=== PATIENT | female | born 1965 | race Caucasian/White ===

== ENCOUNTER 2021-05-19 00:32 | Inpatient (IN) | payer OTHER, SELFPAY ==
[2021-05-19] VITALS (18 sets, daily range): BP systolic 114–138; BP diastolic 81–92; PULSE 81–106; RESP 14–20; TEMP 36.6–37.5; O2SAT 96–99; BMI 25.2
--- NOTE | 2021-05-19 01:54 | P.HP_ITS ---
History of Present Illness History of Present Illness Date Patient Seen: 05/19/21 Time Patient Seen: 01:18 Chief complaint: orb Narrative: Carly Carney is a 55 year old female with a reported medical history chronic alcohol abuse and hypothyroidism who was seen at [facility] ED, patient was brought in by her family complaining of uncontrollable shakes a inability to stand after stopping drinking on , it was reported that her family found her down at home on the floor unconscious after hitting her head on the counter for an undetermined amount of time. It was also reported by EMT's that they patient had a seizure in [facility] ED was given IV Ativan, Thiamine, the pt also pulled out her IV in the ambulance. Apparently April of 2020 patient was seen at [facility] ED for status epilepticus secondary to alcohol withdrawal. Report/request for transfer was called to Dr. Richardson who accepted transfer to our facility. No physician notes provided, only imaging and few laboratory results. Several attempts have been made to obtain physician notes and laboratory results to no avail. The patient is a poor historian and confused as she has had at least 6 mg of Ativan per EMS. She is alert, though she fell asleep during questioning. She states that she has been drinking at least 24-48 oz of vodka daily for approximately 35 years she has attempted sobriety several times, and rehab approximately 2-3 years ago. She reports no history of seizures with withdrawals, and was unable to recall being found down or having a seizure earlier. Patient states her last drink was on the 16 of May. Patient states that she smoked for 20 years and quit at the age of 37, she takes no recreational substances, she lives alone in [facility] [place] she is up here visiting family for the holidays . Based on the records from [facility] temp 98.1?, BP 153/100, HR 112, R 22, O2 saturation 98% on room air. Upon admit patient had is slightly febrile temp 99.5?, BP 136/86, HR 106, RR 18, O2 saturation 99% on room air. Patient is alert, though appears confused and falls asleep during intake interview, poor historian, but in no distress at this time. [facility] provided no cbc results, anion gap 15, creatinine 0.40, AST 168, ALT 58, bili 1.8, magnesium of 1.3 and was given 50 mg of magnesium, PT 14.8, INR 1.1, ETOH was negative, troponin WNL, tox screen negative, urinalysis showed positive bilirubin, uro bili of 4.0, ketones large, trace leukocytes, and protein + 30. Patient's abdomen pelvis CT demonstrated no acute abnormalities, diffuse hepatic steatosis, mild nodularity of the liver surface which is suspicious for early cirrhosis, and small hiatal hernia. Patient's head CT demonstrated no acute intracranial processes. Patient has had not been tested for COVID prior to transfer. Patient's EKG is documented as sinus tachycardia at a rate of 109, low-voltage extremity and precordial leads, consistent with EKG from 05/21/2020. Patient admitted for observation alcohol withdrawal syndrome with complication, seizure, head trauma secondary to syncope, hypomagnesia in the setting of history of status epilepticus related to alcohol withdrawal. Patient History Medical History Acquired hypothyroidism Alcohol abuse Alcohol withdrawal syndrome with complication History of status epilepticus History of tobacco abuse Surgical History (Updated 05/19/21 @ 02:34 by YARA Romero-JOEL) No history of previous surgery Family & Social History Family History (Updated 05/19/21 @ 02:35 by CLAUDETTE Romero) Mother Cancer Father Cancer Social History: Patient lives alone in [facility] [place], works in Service Seeking and School Admissions. Tobacco & Substance use: Alcohol 24-48 oz of vodka daily times 35 years Tobacco abuse 20 years quit at age 37 Recreational substances never Review of Systems Review of Systems Narrative: All 12 point systems reviewed with the patient and are negative except otherwise documented. Please note that patient is confused and disorientated between withdrawals and Ativan dosing and was unable to accurately participate in HPI, ROS, or family history. Exam Vital Signs (past 8 hours): - 05/19/21 01:16 Temperature 99.5 F Pulse Rate 106 H Respiratory Rate 18 Blood Pressure 136/86 Pulse Oximetry 99 Oxygen Flow Rate 0 Narrative Exam Narrative: General: Patient is a well-developed, moderately-nourished female in no distress at this time. HEENT: Normocephalic, atraumatic, extraocular muscles intact, oral pharynx is clear and mucous membranes are dry, lips arecracking, and mild bleeding. Neck is supple and symmetric, trachea is midline, no adenopathy, no thyroid enlargement, nontender, no masses palpated. Negative for JVD Chest: Normal AP diameter and contour without kyphoscoliosis, no nasal flaring, retractions, or tachypneic labored Lungs: Auscultation of all lung gauthier are clear without adventitious sounds, wheezes, rhonchi, or rales. Cardio: regular tachycardiac raet without murmur, rubs, or gallops, no carotid bruit, no cardiac pulsations present. Abdomen: Soft nontender, negative for organomegaly, or masses. Bowel sounds are hypoactive present in all 4 quadrants without guarding or rebound, no CVA tenderness. Musculoskeletal: Muscle strength and tone are equal within normal limits, no deformity, crepitus, effusions, cyanosis, clubbing or edema present. Full range of motion intact radial and pedal pulses are normal. Skin: Warm dry and intact without rashes, ulcerations or petechiae. Neuro: Alert though falls asleep in the middle of questioning, strength is +5/5 in all extremities, sensation to touch intact, bilateral horizontal rapid equal nystagmus. Psych: Patient has a moderate-kept appearance, appears older than stated age, inappropriate affect, confused, but pleasant. Assessment & Plan Assessment & Plan narrative: Carly Carney is a 55 year old female with a reported medical history chronic alcohol abuse and hypothyroidism who was seen at [facility] ED was transferred to [facility]. Patient had been brought in by her family complaining of uncontrollable shakes a inability to stand after stopping drinking on , her family found her down at home on the floor unconscious after hitting her head on the counter for an undetermined amount of time. The patient had a seizure in [facility] ED, and had been admitted in apr 2020 for status epilepticus secondary to alcohol withdrawal. Patient admitted for observation alcohol withdrawal syndrome with complication, seizure, head trauma secondary to syncope, hypomagnesia in the setting of history of status epilepticus related to alcohol withdrawal. 1. Alcohol withdrawal syndrome with complication, seizure, head trauma secondary to syncope, in the setting of chronic alcohol abuse, acute on chronic, with a history of status epilepticus secondary to alcohol withdrawal, with secondary hypomagnesia, acute, present on admission -stable -monitor patient for complications of fluid overload variceal hemorrhage, ascites, spontaneous bacterial peritonitis, hepatocellular carcinoma, hepatic renal syndrome, or hepatopulmonary syndrome, septic shock, closed head injury, intracranial hemorrhage. -patient given 6 mg of Ativan, thiamine, and magnesium in [facility] ED -patient admitted under [facility] protocol, seizure precautions, Fall precautions, -Ativan per protocol tonight-Tomorrow stop ativan and change to phenobarbital 60 mg BID tomrrow-monitor for over sedation. Titrate dose up or down passed on patient symptoms & sedation. -Do not give Phenobarbital & Ativan together. -Thiamine & folate -NS@100cc/hr -Tele -pt continues to be tachycardic-stable in no distress. -Morning Labs: cbc, cmp, ammonia, BNP, A1c, monitor electrolytes Mag , phos -patient counseled on stopping drinking and seeking follow-up outpatient mental health and rehabilitative services. -MR brain ordered for morning- due to syncope, head trauma, and seizure. 2. Acquired hypothyroidism, chronic, present on admission -continue patient's levothyroxine Code status: Full Surrogate decision maker: Father Vasquez NEIL PCR: Negative DVT/VTE prophylaxis: Lovenox 40 & SCD's Disposition: A patient admitted for observation monitor for ongoing seizure activity, rehydration, correct electrolyte imbalace, rule out closed head injury, and manage alcohol withdrawal symptoms. Expected length of stay less than 2 midnights. I have utilized all available immediate resources to obtain, update, or review the patient's current medications. I confirmed that the patient's advanced care plan is present, Code status is documented and/or surrogate decision maker is listed in the patient's medical record. Time Spent With Patient Critical Care time: I spent a total of [] minutes of critical care time on this patient's care today; this time is exclusive of procedural time. Scores [facility] [place] coma scale eye opening: Spontaneous [place] coma scale verbal response: Confused [place] coma scale motor response: Localising [place] coma scale total score: 13
[2021-05-19] MEDS: SODIUM CHLORIDE 0.9% 1,000 ML 100 ML IV ×2 (02:11→13:21)
[2021-05-19] MEDS: ACETAMINOPHEN 325 MG TABLET 650 MG PO (02:16)
[2021-05-19] MEDS: LORazepam 2 MG/ML INJ IV ×5 (02:17→16:10)
[2021-05-19] MEDS: ONDANSETRON 4 MG/2 ML INJ IV (02:17)
[2021-05-19 02:24] LABS: COVID19 - ADMIT (NP swab/PCR) Negative (Negative)
[2021-05-19 03:59] LABS: Bilirubin Urine UA 1+ (NEGATIVE); Glucose Urine UA TRACE g/dL (Negative); Ketones Urine UA 2+ (NEGATIVE); Leukocyte Esterase Urine UA NEGATIVE (NEGATIVE); Nitrite Urine UA NEGATIVE (Negative); Occult Blood Urine UA NEGATIVE (Negative); Protein Urine UA 1+ (Negative)
[2021-05-19 04:01] LABS: Color Urine UA Dark Yellow
[2021-05-19 04:05] LABS: Appearance Urine UA Slightly Cloudy
[2021-05-19 04:06] LABS: Ictotest Urine Positive (Negative); RBC Urine None Seen (0-5/HPF); Squamous Epithelial Cell Urine 0-1 /HPF (0-5/HPF); WBC Urine None Seen (0-5/HPF)
[2021-05-19 04:07] LABS: Amorphous Sediment Urine 3+; Bacteria Urine Occasional (0-1); Culture Indicated Urine Cult Not Indicated; Triple Phosphate Crystal Urine Few
[2021-05-19 05:15] LABS: Add Manual Diff / Slide Review NO; Basophils Absolute Auto 0 /uL (0-100); Basophils Percent Auto 0.9 % (0-2); Eosinophils Absolute Auto 200 /uL (0-450); Eosinophils Percent Auto 3.3 % (2-4); Hematocrit 33.1 % (36-46); Lymphocytes Absolute Auto 900 /uL (1100-4500); Lymphocytes Percent Auto 18.2 % (25-40); Mean Corpuscular HGB Conc 33.3 % (30-36); Mean Corpuscular Hemoglobin 33.1 PG (26-34); Mean Corpuscular Volume 99.3 fL (80-100); Monocytes Absolute Auto 600 /uL (0-900); Monocytes Percent Auto 11.6 % (3-14); Neutrophils Absolute Auto 3300 /uL (1500-7000); Platelet Count 70 X10^3/uL (150-400); Red Blood Cell Count 3.33 X10^6/uL (4.0-5.2); Red Cell Distribution Width 13.5 % (11.6-14.8)
[2021-05-19 05:22] LABS: Ammonia (NH3) 27 umol/L (9-30)
[2021-05-19 05:24] LABS: PTT Partial Thromboplastin Tim 32 SECONDS (26.4-36.2)
[2021-05-19 05:27] LABS: Alanine Aminotransferase 57 IU/L (<35); Albumin 4.3 g/dL (3.5-5.0); Albumin Globulin Ratio 1.3 (1.0-2.8); Alkaline Phosphatase 84 U/L (38-126); Aspartate Aminotransferase 173 IU/L (14-36); BUN Creatinine Ratio 28.9 (6-22); Bilirubin Total 2.1 mg/dL (0.2-1.3); Blood Urea Nitrogen 13 mg/dL (7-17); Calcium 9.5 mg/dL (8.4-10.2); Carbon Dioxide 24 mmol/L (22-32); Chloride 102 mmol/L (98-107); Estimated Glomerular Filt Rate > 60.0 mL/min (>60); Globulin 3.4 g/dL (1.7-4.1); Glucose 102 mg/dL (70-100); HEMOLYSIS < 15 (0-50); Magnesium 1.9 mg/dL (1.6-2.3); Phosphorous 3.6 mg/dL (2.5-4.5); Potassium 3.4 mmol/L (3.4-5.1); Sodium 137 mmol/L (137-145); Total Protein 7.7 g/dL (6.3-8.2)
[2021-05-19 05:30] LABS: Hemoglobin A1C% w Est Avg Glu 5.1 % (4.0-6.0)
[2021-05-19 05:32] LABS: INR 1.3 (0.9-1.3); Prothrombin Time 15.2 SECONDS (10.1-12.7)
[2021-05-19 05:34] LABS: NT-proBNP (BNP-Adult 18+) 419 pg/mL (<125)
[2021-05-19 05:56] LABS: TSH w/ Reflex to FT4 6.33 uIU/mL (0.47-4.68)
[2021-05-19 07:26] LABS: Creatine Kinase 419 U/L (30-135)
--- NOTE | 2021-05-19 07:31 | PC.NURSE ---
arrived to floor w/o notice from receiving hospital letting us know she was on her way. no covid swab info, no MD notes, no VS or report from nurse sending patient. call to [facility] to get report. Nurse who had patient had left, but i spoke w/ a nurse who read the notes from [facility]. patient had a similar event last , when she traveled to her parents for the holiday, they located her alcohol, which they disposed of, then patient went into w/d. hx of seizures. no meds taken for this. patient unable to give hx of any meds. patient had pulled her PIV on way to . new iv site obtained to left arm. patient tremulous, anxious, but able to answer yes/no questions. Ciwa- 8 then 5 after lorazepam IV given. tele: ST- 130 w/ exertion. OOB to [facility] w/ 1-2 pa, patient unable ot follow directions. urine was very foul-smelling, sample sent to lab. NS at 100/hour. MRI head/neck ordered since patient fell yesterday. has a large purple bruise to left back, w/ a small abraised area. dressingapplied. bed alarm is on, call light w/in reach. she does not use call light so this nurse sat outside her room to monitor for safety.
[2021-05-19] MEDS: PANTOPRAZOLE DR 20 MG TABLET PO (08:11)
[2021-05-19] MEDS: FOLIC ACID 1 MG TABLET PO (08:12)
[2021-05-19] MEDS: MULTIVITAMIN 1 TABLET 1 TAB PO (08:12)
[2021-05-19] MEDS: ENOXAPARIN 40 MG/0.4 ML SYRINGE SUBCUT (08:12)
[2021-05-19] MEDS: THIAMINE 100 MG TABLET PO (08:14)
[2021-05-19] MEDS: chlordiazePOXIDE 25 MG CAPSULE PO ×2 (08:14→20:39)
--- NOTE | 2021-05-19 08:19 | PC.NURSE ---
Pt A&Ox3, MRI questionaire completed at bedside however pt refusing MRI this a.m. even with anxiolytic medication. MD notified and MRI cancelled.
[2021-05-19] MEDS: POTASSIUM CHLORIDE 20 MEQ TAB 40 MEQ PO (10:43)
[2021-05-19] MEDS: THIAMINE 500 MG in SODIUM CHLORIDE 0.9% 100 ML 420 ML IV ×3 (13:20→20:39)
--- NOTE | 2021-05-19 13:50 | PT-IP ANOTE ---
Received PT consult and reviewed the chart. Discussed pt with RN who states pt is not stable for PT assessment at this time. Will plan to follow up on 05/20/21.
--- NOTE | 2021-05-19 13:51 | OT.IPNOTE ---
Pt not appropriate for OT eval today and to check on the pt tomorrow.
--- NOTE | 2021-05-19 14:36 | PC.NURSE ---
Addendum entered by Celeste Perez R.N. 05/20/21 18:16: correction nystagmus not stigmatism Original Note: Pt is A&Ox1-2 this a.m. She is off by 1-2 days and didn't remember the name of the city or hospital and continues to be very forgetful. She denies n/v, headache, light sensitivity, agitation, hallucinations or anxiety however her tremors are moderate to severe. She has a difficult time standing and getting to BSC (x2 person for assistance) and her HR 130's-150 with trying to stand or get out of bed. She needs frequent reminding to call for assistance and appears to be a very high fall risk. Noted B eyes with stigmatism and many scattered bruises to her extremities with various stages of healing and one large bruise on her back. She attempts to void in BSC x2 this a.m. without success and noted no documentation of output since her arrival. Bladder scan revealed only 139 ml. Notified MD and received order to straight cath x1. 175ml of bright orange urine obtained. Pt then with x1 small incontinent void. PVR <20 ccc. Pt able to eat 10-25% of meals, she denies pain. Continuous monitoring. CM at bedside this afternoon assessing patient. She will reassess tomorrow. Pt is unclear about who she is ok with nurse and CM discussing care with. Initially states it is ok to talk with siblings and mother and then changing. Will reassess. Pt talking on the phone this afternoon to admitting holding both pieces of her room phone to her ear.
--- NOTE | 2021-05-19 14:57 | CM.DANOTE ---
DCP/Assessment: Reviewed chart. Patient is a 55yr old female admitted to [facility] from [facility] due to bed availability. PCP is unknown. Primary payor is 1)[place] [employer] [place]. Attempted to meet with patient today to explain VOLTAGE INSPECTOR role. Patient currently on CIWA protocol with active detox. Patient with tremors at time of visit. Patient reports that she initially was at [facility], notes report patient transferred due to bed availability. Patient's current living situation unable to determine. Patient's Mother listed on whiteboard as contact but patient requesting that none of her family be called. VOLTAGE INSPECTOR notified patient that VOLTAGE INSPECTOR would re-evaluate patient once more medically stable. Family has called nursing staff requesting assistance with inpatient rehabilitation for patient? Notified RN that patient currently refusing for us to contact family. Again, will follow up in AM. P: Pending [facility] Discharge Planning/Care Management CM Discharge Assessment Start: 05/19/21 14:48 Freq: Status: Active Protocol: Document 05/19/21 14:48 [facility] (Rec: 05/19/21 14:56 [facility] [id number]) Discharge Planning Assessment Assigned Rural Health Consultant [place] Contact Information Bria Carney (Mother) ph# Advance Directives? No Advance Directives on File No History Provided By Patient,Medical Record Prior Living Arrangements House Household Members none Type of transporation used prior to Drives own vehicle admit Independent with ADL's No: Currently with ETOH detox Is patient alert and oriented? Questionable during detox. At baseline Alert and Oriented x3 . Needs Assistance With Bathing,Grooming,Meal Prep, Toileting,Managing Medications Caregiver for Another No Comment Unknown, patient visiting family from [place]. Comment Unknown. PT/OT evaluations pending. Patient/Family Preference Drug/Alcohol Rehab Comment Currently unclear on patient's current treatment status. Comment D/C needs pending. Transportation Arrangement Family? Referrals Initiated Other Additional Comment ETOH resources Whiteboard Updated in Patient Room with Yes name and ext. # of Rural Health Consultant Review Status In Process Next Review Type Continued Stay Review
[2021-05-20] VITALS (14 sets, daily range): BP systolic 110–132; BP diastolic 78–92; PULSE 85–109; RESP 16–18; TEMP 36.6–36.9; O2SAT 94–100
[2021-05-20] MEDS: SODIUM CHLORIDE 0.9% 1,000 ML 100 ML IV ×3 (00:43→20:37)
[2021-05-20] MEDS: LORazepam 2 MG/ML INJ IV (00:43)
--- NOTE | 2021-05-20 02:41 | PC.NURSE ---
patient is more alert & oriented at the beginning of this shift. calling out for help instead of trying to get OOB unattended. she is able to articulate her needs better today. and appears more collected today. ativan given x 1 so far this shift for CIWA 7, mostly tremors and nausea. this was effective. able to follow commands easier, tolerated OOB to BSC w/ 1-2 minimum assist. continues w/ IVF and frequent safety and room checks. Bed alarm is on, call light w/in reach.
[2021-05-20 05:35] LABS: Add Manual Diff / Slide Review NO; Basophils Absolute Auto 100 /uL (0-100); Basophils Percent Auto 1.2 % (0-2); Eosinophils Absolute Auto 300 /uL (0-450); Hematocrit 31.3 % (36-46); Hemoglobin 10.3 g/dL (12.0-16.0); Lymphocytes Absolute Auto 1000 /uL (1100-4500); Lymphocytes Percent Auto 22.9 % (25-40); Mean Corpuscular HGB Conc 32.8 % (30-36); Mean Corpuscular Volume 100.6 fL (80-100); Monocytes Absolute Auto 500 /uL (0-900); Monocytes Percent Auto 12.2 % (3-14); Neutrophils Absolute Auto 2400 /uL (1500-7000); Neutrophils Percent Auto 56.7 % (50-75); Platelet Count 67 X10^3/uL (150-400); Red Blood Cell Count 3.11 X10^6/uL (4.0-5.2); Red Cell Distribution Width 13.3 % (11.6-14.8); White Blood Cell Count 4.2 X10^3/uL (4.5-11.0)
[2021-05-20 05:40] LABS: Alanine Aminotransferase 45 IU/L (<35); Albumin 3.8 g/dL (3.5-5.0); Albumin Globulin Ratio 1.2 (1.0-2.8); Alkaline Phosphatase 69 U/L (38-126); Aspartate Aminotransferase 119 IU/L (14-36); BUN Creatinine Ratio 16.3 (6-22); Bilirubin Total 1.7 mg/dL (0.2-1.3); Blood Urea Nitrogen 8 mg/dL (7-17); Calcium 9.1 mg/dL (8.4-10.2); Carbon Dioxide 24 mmol/L (22-32); Chloride 106 mmol/L (98-107); Estimated Glomerular Filt Rate > 60.0 mL/min (>60); Globulin 3.1 g/dL (1.7-4.1); Glucose 82 mg/dL (70-100); HEMOLYSIS < 15 (0-50); Magnesium 1.5 mg/dL (1.6-2.3); Potassium 3.6 mmol/L (3.4-5.1); Sodium 137 mmol/L (137-145); Total Protein 6.9 g/dL (6.3-8.2)
[2021-05-20] MEDS: PANTOPRAZOLE DR 20 MG TABLET PO (06:38)
[2021-05-20] MEDS: LEVOTHYROXINE 50 MCG TABLET PO (06:38)
[2021-05-20] MEDS: FOLIC ACID 1 MG TABLET PO (09:02)
[2021-05-20] MEDS: chlordiazePOXIDE 25 MG CAPSULE PO ×3 (09:02→20:30)
[2021-05-20] MEDS: MULTIVITAMIN 1 TABLET 1 TAB PO (09:02)
[2021-05-20] MEDS: ENOXAPARIN 40 MG/0.4 ML SYRINGE SUBCUT (09:02)
[2021-05-20] MEDS: THIAMINE 500 MG in SODIUM CHLORIDE 0.9% 100 ML 420 ML IV ×3 (09:06→20:27)
[2021-05-20] MEDS: MAGNESIUM SULFATE 4 GM/100 ML PIGGYBACK IV (09:35)
--- NOTE | 2021-05-20 10:10 | OT.IP.EVAL ---
Current Diagnoses Alcohol abuse, uncomplicated (05/19/21) Alcohol dependence with withdrawal, unspecified (05/19/21) Past Medical History (Last Updated 05/19/21 @ 02:34 [facility] Acquired hypothyroidism Alcohol abuse Alcohol withdrawal syndrome with complication History of status epilepticus History of tobacco abuse No history of previous surgery Surgical History (Last Updated 05/19/21 @ 02:[facility] No history of previous surgery Occupational Therapy Inpatient Evaluation/Re-Eval M1 PT/OT-IP Prior Functional Status Start: 05/19/21 13:47 Freq: NEEDED Status: Active Protocol: Document 05/20/21 12:09 [facility] (Rec: 05/20/21 12: [facility] [id number]) Medical Review Prior Functional Status Communication Independent Mobility and Gait Per pt did not use a device for ambulation. Activities of Daily Living and IADL's Completely independent for all ADl ,IADl, and driving. Social History Household Members none Living Arrangements House, this information is for her parent's house Number of Floors (Floors) 3 or More Floors Number of Stairs To Enter/Railing? Pt not able to recall how many steps to get in. Initially pt told OT she had 25 steps to the lower level and then told the PT steps to get upstairs. Home Environment Standard Height Toilet,Tub/ Shower Home Equipment Hand Held Shower M2 OT-IP Current Condition Start: 05/20/21 12:08 Freq: Status: Active Protocol: Document 05/20/21 12:09 [facility] (Rec: 05/20/21 12:28 [facility] [id number]) Occupational Therapy Current Condition Current Condition Evaluation Date 05/20/21 Treatment Diagnosis ETOH withdrawl with previous withdrawal seizure, decreased mobility Diagnosis Onset Date 05/19/21 M3 OT- IP Subjective and Pain Start: 05/20/21 12:08 Freq: Status: Active Protocol: Document 05/20/21 12:09 [facility] (Rec: 05/20/21 12:28 [facility] [id number]) OT- Subjective Occupational Therapy Visit Type Type Initial Evaluation Visit Start Time 09:40 Visit Stop Time 10:10 Total Visit Minutes 30 Occupational Therapy Visit Comments Patient Comments Pt agree to get up. Patient/Caregiver Goals To go to her parents home. OT Pain Assessment Pain When Pain Assessed At Rest Pain Present Pain Present Denied Pain M4 OT- IP ADL's Start: 05/20/21 12:08 Freq: Status: Active Protocol: Document 05/20/21 12:09 [facility] (Rec: 05/20/21 12:28 [facility] [id number]) OT [id number] Comments OT Self-Feeding Comments Not at meal time. OT ADL-Grooming General Evaluation Grooming Ability Standby Assistance OT ADL-Oral Care General Eval Oral Care Ability Minimal Assistance Comments Oral Care Comments Due to hand tremors, needing assist to help put the tooth paste on the toothbrush. OT ADL-Dressing General Eval Lower Body Dressing Ability Standby Assistance Comments OT Dressing Comments Able to kaye/doff her socks while seated on the edge of the bed with increased time. OT ADL-Toileting Comments OT Toileting Comments Pt not having to go. OT ADL-Bathing Comments OT Bathing Comments NOt performed. M5 OT- IP IADL's Start: 05/20/21 12:08 Freq: Status: Active Protocol: Document 05/20/21 12:09 [facility] (Rec: 05/20/21 12:28 [facility] [id number]) OT-Instrumental Activities of Daily Living Home Safety Awareness Home Safety Comments Pt a bit confused, having trouble to get the words out, and will benefit from / assist for all her needs. M6 OT- IP Functional Cognition Start: 05/20/21 12:08 Freq: Status: Active Protocol: Document 05/20/21 12:09 [facility] (Rec: 05/20/21 12:28 [facility] [id number]) Cognitive Factors Limiting Selfcare Function Cognitive Ability Level of Alertness Alert Patient Orientation Name Attention Span Ability Capable of Focused Attention, Capable of Sustained Attention Ability to Follow Commands Able to Follow One Step Commands with Increased Time, Able to Follow One Step Commands with Repetition Memory Description Working Impaired Cognitive Comments Cognitive Assessment Comments Pt having trouble getting his words out as not able to identify body parts of elbow and forearm. Pt needing simple concrete cues to follow. pt needing increased time to follow commands as well. Pt needing cues to FWW safety to keep the FWW in front of her. OT- Vision and Hearing OT- Hearing Assessment OT- Hearing Assessment WFL OT- Vision Assessment Visual Acuity Glasses For Reading Vision Assessment Comments pt states her reading glasses are not here in the hospital Note bilateral nystagmus for her eyes. M7 OT- IP Mobility and Balance Start: 05/20/21 12:08 Freq: Status: Active Protocol: Document 05/20/21 12:09 [facility] (Rec: 05/20/21 12: [facility] [id number]) OT- Bed Mobility Assessment Rolling Type of Rolling Roll to Left Level of Assistance Standby Assistance Supine to Sit Supine to Sit Assist Standby Assistance Sit to Supine Sit to Supine Assist Standby Assistance OT-Transfer Assessment Sit to and From Stand Sit to and from Stand Contact Guard Assistance Transfers Transfer Ability Minimal Assistance Technique Transfer Destination Bed Transfer Technique Stand Step Pivot Devices Transfer Assistive Devices Gait Belt,Front Wheeled Walker Comments Mobility Comments JI to stand to FWW and assist to help guide the FWW and for pt's balance when up on her feet. OT- Balance Assessment Sitting Balance and Reactions Static Sitting Balance Ability Good Dynamic Sitting Balance Ability Good Standing Balance and Reactions Static Standing Balance Ability Fair Dynamic Standing Balance Ability Poor M8 OT- IP Objective Assessments Start: 05/20/21 12:08 Freq: Status: Active Protocol: Document 05/20/21 12:09 [facility] (Rec: 05/20/21 12:28 [facility] [id number]) OT Gross Range of Motion Upper Extremity Range of Motion Assessment Within Functional Limits OT Strength Upper Extremity Strength Assessment Within Functional Limits OT- Coordination Assessment Comments Coordination Comments Increased time for fniger to nose left > right finger. Pt not able to do diadochokinesis, therefore coordination from right to left impaired at this time. OT-Muscle Tone Assessment Comments Muscle Tone Comments Pt has tremors in her hands. OT Sensation Assessment Comments Summary Comments Intact for light touch but unable to identify and states the words for elbow and forearm. M9 OT- IP Assessment and Plan Start: 05/20/21 12:08 Freq: Status: Active Protocol: Document 05/20/21 12:09 [facility] (Rec: 05/20/21 12:28 [facility] [id number]) OT Summary Assessment and Plan Potential Rehabilitation Potential Good Analytic Complexity at Evaluation Moderate Summary OT Impairments Balance,Coordination, Functional Cognition, Functional Mobility,Grooming, Dressing,Toileting,Bathing, Toilet Transfers,Shower Transfers,Activity Tolerance Progress Towards Goals Slow Progress due to Medical Issues,Slow Progress due to Cognition Assessment Summary Pt MOD complexity and main barriers are steps, decreased balance and functional cognition at this time and would benefit from 24/7 assist at this time as pt has ETOH withdrawal. Pt states looking to go home to her parents when medically stable. However if pt's parents are unable to care for pt , pt may need short rehab stay. Goals Self-Feeding Goal Independent Grooming Goal Independent Dressing Goal Independent Toileting Goal Independent Bathing Goal Independent Toilet Transfer Goal Independent Shower Transfer Goal Independent Days to Meet Goals 10 Frequency of Treatment Frequency Of Treatment Once a Day Treatment Plan OT Treatment Plan ADL Training,Functional Cognition Training,Functional Mobility,Patient/Family Education,Discharge Planning Other Treatment Recommendations and Next SLUMS, shower Treatment Focus Discharge Recommendations OT Discharge Recommendations Home with 24/7 Assist Available,Home vs SNF Home Equipment Needs shower chair, FWW Transportation Needs at Discharge Private Vehicle,Wheelchair/ Cabulance
--- NOTE | 2021-05-20 11:58 | P.PN_ITS ---
Subjective Subjective Date Patient Seen: 05/20/21 Time Patient Seen: 08:00 Interval history: She feels improved. Less withdrawal. She continues to be quite unsteady with activity. Exam Vital Signs (past 8 hours): - 05/20/21 04:00 05/20/21 07:00 05/20/21 08:52 Temperature 97.8 F 97.8 F Pulse Rate 85 100 H Respiratory Rate 16 18 Blood Pressure 132/78 130/92 H Pulse Oximetry 96 98 98 05/20/21 11:00 Temperature Pulse Rate Respiratory Rate Blood Pressure Pulse Oximetry 98 Oxygen Delivery Method Room Air Oxygen Flow Rate 0 Narrative Exam Narrative: General:?no acute distress Lungs:?clear bilaterally Cardio:? tacycardic, no murmurs Abdomen:? soft, nontender, nondistended Skin:? Warm dry without rashes Neuro:?bilateral horizontal nystagmus Objective Labs Result Diagrams: 05/20/21 04:45 05/20/21 04:45 Labs: Laboratory Results - last 24 hr 05/20/21 05/20/21 04:45 04:45 WBC 4.2 L RBC 3.11 L Hgb 10.3 L Hct 31.3 L MCV 100.6 H MCH 33.0 MCHC 32.8 RDW 13.3 Plt Count 67 L Neut % (Auto) 56.7 Lymph % (Auto) 22.9 L [place] % (Auto) 12.2 Eos % (Auto) 7.0 H Baso % (Auto) 1.2 Neut # (Auto) 2400 Lymph # (Auto) 1000 L [place] # (Auto) 500 Eos # (Auto) 300 Baso # (Auto) 100 Sodium 137 Potassium 3.6 Chloride 106 Carbon Dioxide 24 BUN 8 Creatinine 0.49 L Estimated GFR > 60.0 BUN/Creatinine Ratio 16.3 Glucose 82 Calcium 9.1 Magnesium 1.5 L Total Bilirubin 1.7 H AST 119 H ALT 45 H Alkaline Phosphatase 69 Total Protein 6.9 Albumin 3.8 Globulin 3.1 Albumin/Globulin Ratio 1.2 PFSH Medical History Acquired hypothyroidism Alcohol abuse Alcohol withdrawal syndrome with complication History of status epilepticus History of tobacco abuse Surgical History (Updated 05/19/21 @ 02:34 by CLAUDETTE Romero) No history of previous surgery Family History (Updated 05/19/21 @ 02:35 by Marquita Brown, CLAIM REVIEW MEDICAL DIRECTOR-BC) Mother Cancer Father Cancer Social History household members: none Smoking Status: Never smoker alcohol intake: current Assessment & Plan Assessment & Plan narrative: 55W with PMH EtOH dependence/abuse with previous withdrawal seizure brought into ED after being found down and in alochol withdrawal. 1. Alcohol withdrawal with previous withdrawal seizure, probable Wernicke's enceophalopathy -she has been getting ativan per CIWA protocol, added librium for withdrawal -she has significant ataxia, noted nystagmus, and encephalopathy consistent with Wernicke's encephalopathy ---continue IV thiamine 500mg TID for 2 days, then 250mg daily, for wernicke's -continue folate, multivitamin -patient counseled on stopping drinking and seeking follow-up outpatient mental health and rehabilitative services. -MR brain ordered again, refused yesterday -scouring pads supervisor consulted 2. Acquired hypothyroidism, chronic, present on admission -continue patient's levothyroxine 3. Probable alcoholic cirrhosis with pancytopenia -pancytopenia noted on labs with wbc 4.2, hgb 10.3, plts 67 -has elevated liver function tests but now improving -abdominal imaging shows concern for nodular/cirrhotic liver 4. Hypomagnesemia -continue magnesium repletion Time Spent With Patient Critical Care time: I spent a total of [] minutes of critical care time on this patient's care today; this time is exclusive of procedural time. Quality VTE Deep Vein Thrombosis/Pulmonary Embolism Present on Admission: No
--- NOTE | 2021-05-20 12:00 | DI.MRI.S_ITS ---
PROCEDURE: MR HEAD/BRAIN WO/W CON INDICATIONS: unsteady, nystagmus TECHNIQUE: Noncontrast axial T1 spin echo, axial T2 fast spin echo, sagittal and axial FLAIR, coronal T2 fast spin echo, axial gradient echo, axial diffusion and ADC through the brain. After the administration of contrast, axial and coronal 3D VIBE or T1 spin echo with fat saturation through the brain. COMPARISON: [facility], CT, CT HEAD WITHOUT CONTRAST, 05/21/2020, 20:20. [facility], CT, CT HEAD WITHOUT CONTRAST, 05/18/2021, 14:35. FINDINGS: Image quality: This examination is limited by involuntary motion artifact. CSF Spaces: Basal cisterns are patent. No extra-axial fluid collections. Ventricles are normal in size and shape. Brain: No midline shift. No intracranial bleeds or masses. No abnormal intracranial enhancement. The brainstem appears normal. Diffusion-weighted images demonstrate no acute ischemic insults. No chronic ischemic insults. Normal intravascular flow voids are present. Skull and face: Calvarial marrow is normal in signal. Orbits appear normal. Sinuses: [id number] mucosal thickening is seen within the inferior maxillary sinuses. Sinuses and mastoids otherwise appear clear. IMPRESSION: No findings of acute or subacute infarction can be seen. No masses or abnormal enhancement can be seen. Dictated by: Francisco Bennett M.D. on 05/20/2021 at 12:40 Approved by: Francisco Bennett M.D. on 05/20/2021 at 12:42
--- NOTE | 2021-05-20 12:43 | PT.IIE ---
Current Diagnoses Alcohol abuse, uncomplicated (05/19/21) Alcohol dependence with withdrawal, unspecified (05/19/21) Medical History Acquired hypothyroidism Alcohol abuse Alcohol withdrawal syndrome with complication History of status epilepticus History of tobacco abuse Physical Therapy Inpatient Evaluation/Re-Eval M1 PT/OT-IP Prior Functional Status Start: 05/19/21 13:47 Freq: NEEDED Status: Active Protocol: Document 05/20/21 12:09 [facility] (Rec: 05/20/21 12:28 [facility] [id number]) Medical Review Prior Functional Status Communication Independent Mobility and Gait Per pt did not use a device for ambulation. Activities of Daily Living and IADL's Completely independent for all ADl ,IADl, and driving. Social History Household Members none Living Arrangements House Number of Floors (Floors) 3 or More Floors Number of Stairs To Enter/Railing? Pt not able to recall how many steps to get in. Initially pt told OT she had 25 steps to the lower level and then told the PT steps to get upstairs. Home Environment Standard Height Toilet,Tub/ Shower Home Equipment Hand Held Shower M2 PT-IP Current Condition Start: 05/19/21 13:47 Freq: NEEDED Status: Active Protocol: Document 05/20/21 11:34 AW (Rec: 05/20/21 12:35 AW [id number]) Physical Therapy Current Condition Current Condition Evaluation Date 05/20/21 Treatment Diagnosis GLF with head trauma, alcohol withdrawal; impaired mobility and gait Onset Date 05/19/21 M3 PT-IP Subjective Start: 05/19/21 13:47 Freq: NEEDED Status: Active Protocol: Document 05/20/21 11:34 AW (Rec: 05/20/21 12:35 AW [id number]) Subjective Physical Therapy Visit Type Type Initial Evaluation Visit Start Time 11:09 Visit Stop Time 11:34 Total Visit Minutes 25 Physical Therapy Visit Comments Patient Comments Pt is willing to participate with PT Patient Goals Pt says she hopes to return to her parents' house and that they will be able to help her. Therapy Pain Assessment Pain When Pain Assessed During Mobility Pain Present Pain Present Denied Pain M4 PT-IP Mobility and Gait Start: 05/19/21 13:47 Freq: NEEDED Status: Active Protocol: Document 05/20/21 11:34 AW (Rec: 12/28/21 12:35 AW [id number]) PT-Bed Mobility Assessment Supine to Sit Supine to Sit Contact Guard Assistance Sit to Supine Sit to Supine Standby Assistance Scooting Scooting to Edge of Bed Standby Assistance PT-Transfer Assessment Sit to and From Stand Sit to and from Stand Contact Guard Assistance, Minimal Assistance,1 Person Assistance,Use of Upper Extremities Equipment Transfer Assistive Device Gait Belt,Front Wheeled Walker Orthotic/Prosthetic Devices or Brace: No Transfers Transfer Destination Bed Transfer Technique ambulated with FWW Transfer Ability Level of Assist Contact Guard Assistance Comments Mobility Comments Pt was lying in the bed as PT arrived. Seizure pads in place . BP 115/73 HR 104. Pt was able to complete supine to sit CGA due to unsteadiness. She sat EOB and was able to support herself with BUE support. She stood CGA and used FWW to ambulate in the halls 150 feet min/mod A x 1. See gait comments for details. On return to the room, she requested return to bed which she completed SBA. Seizure pads in place and bed alarm was armed as PT left. BP after activity was 110/82 HR 92. Pt denied dizziness throughout. Gait Assessment Gait Gait Assistance Required: Minimum Assistance,Moderate Assistance Distance (Feet) 150 Assistive Devices Assistive Device Gait Belt,Front Wheeled Walker Orthotic/Prosthetic Devices or Brace: No Gait Deviations General Gait Pattern Ataxic,Lateral Trunk Lean,Wide Based Gait Factors Limiting Gait Function Factors Limiting Gait Function Abnormal Tonal Influences, Decreased Strength, Incoordination,Poor Balance, Poor Safety Awareness Comments Gait Comments Pt ambulated with WBOS and poor motor control. She leaned to the right in stance which she stated she was aware of but was unable to correct. She needed guidance to avoid obstacles on her left side. Stair Climbing Assessment Evaluation Level of Assist On Stairs Moderate Assistance,1 Person Assistance Devices Stair Climbing Assistive Devices Left Railing,Right Railing Technique/Endurance Stair Climbing Direction Ascend and Descend Stair Climbing Technique Step to Step Number of Steps Climbed 3 Query Text: Stair Climbing Set # Repetitions (reps) 1 Comments Stair Climbing Comments Pt used B rails and needed mod assist to ascend. PT provided stabilization for leading knee as pt descended. PT-Balance Assessment Sitting Balance and Reactions Static Sitting Balance Ability Good Dynamic Sitting Balance Ability Fair Standing Balance and Reactions Static Standing Balance Ability Poor Dynamic Standing Balance Ability Poor Device Used FWW Balance Tests Single Limb Standing unable Romberg increased sway EO and EC Tandem Standing Unable. Semi-tandem stance with assist but can not hold M5 PT-IP Objective Assessments Start: 05/19/21 13:47 Freq: NEEDED Status: Active Protocol: Document 05/20/21 11:34 AW (Rec: 05/20/21 12:35 AW [id number]) Orientation Orientation/Cognition Level of Alertness Confusional State Orientation Name,Month,Situation Safety Awareness Decreased Safety Awareness Memory Description Short Term Impaired Comments Pt performed poorly on coordination testing but stated she felt it was normal. Poor insight into current condition. Gross Range of Motion Upper Extremity ROM Assessment Within Functional Limits Lower Extremity ROM Assessment Within Functional Limits Strength Lower Extremity Strength Assessment Bilaterally Impaired Hip 4-/5 Knee 4+/5 ext; 4/5 flex Ankle 4+/5 DF; unable to raise heels in standing Comments Strength Comments No unilateral deficit on exam Coordination Assessment Gross Coordination Gross Coordination Impaired Assessment Finger to Nose Test Moderate Impairment Pronation/Supination Test Severe Impairment Heel on Ruiz Test Moderate Impairment Coordination Comments Pt missed targets >2 cm on finger to nose testing bilaterally. Unable to coordinate rapid pronation/ supination. Sensation Assessment Comments Sensation Comments Pt denies sensation disturbance on assessment Muscle Tone Muscle Tone WNL No Muscle Tone Location Bilateral Severity of Tone Mild Comments Muscle Tone Comments Tremors BUE and BLE with UE more affected. Other Assessments Other Other Assessments Unable to formally assess visual gauthier but pt does run into objects on her left side. Pt has resting and gaze- evoked nystagmus. Smooth pursuits were abnormal. Head thrust was positive. M6 PT-IP Treatment Start: 05/19/21 13:47 Freq: NEEDED Status: Active Protocol: Document 05/20/21 11:34 AW (Rec: 05/20/21 12:43 AW [id number]) Physical Therapy Treatment Education Education Provided Safety Other Treatments Other Treatment Performed Discussed assessment findings with pt, including nystagmus and poor visual tracking likely leading to balance impairment. M7 PT-IP Assessment and Plan Start: 05/19/21 13:47 Freq: NEEDED Status: Active Protocol: Document 05/20/21 11:34 AW (Rec: 05/20/21 12:43 AW [id number]) PT Summary Assessment and Plan Potential Rehabilitation Potential Good Status of Condition at Evaluation Evolving Summary Impairments Strength,Balance,Coordination, Cognition,Bed Mobility, Transfers,Gait Assessment Summary Carly Greenwood is a 55 yo woman admitted for alcohol withdrawal and ground level fall in which she hit her head . Prior functional status is difficult to obtain as pt is a difficult historian and presents with some confusion but she indicates she is independent with all mobility at baseline. On evaluation, pt presents with poor visual tracking and signs consistent with vestibular involvement vs effects of alcohol withdrawal . Coordination and strength impairments are affecting her mobility independence negatively and pt requires min /mod assist to ambulate with FWW. She is able to follow simple commands. PT will continue to assess for safe discharge plan. If family are able to provide 24/7 assist at home, she may be safe to discharge to that environment. Depending on progress and family's ability to assist, SNF may be safest option to improve strength and mobility. Goals Bed Mobility Goal Independent Transfer Goal Standby Assistance,Front Wheeled Walker Gait Goal Standby Assistance,Front Wheel Walker Gait Distance 250 Other Goals - up/down 15 steps with unilateral rail SBA Days to Meet Goals 8 Frequency of Treatment Frequency Of Treatment Once a Day Treatment Plan Physical Therapy Treatment Plan Bed Mobility Training,Transfer Training,Gait Training, Therapeutic Exercise,Balance Retraining,Discharge Planning, Neuromuscular Re-ed, Coordination Retraining Precautions Other Precautions falls Recommendations To Nursing Amount of Assist Needed 1 Person Assist Discharge Recommendations PT Discharge Recommendations Home with 24/7 Assist Available,SNF Rehab,Home vs SNF Equipment Needed for Home Before FWW Discharge Transportation Needs at Discharge Private Vehicle,Wheelchair/ Cabulance
--- NOTE | 2021-05-20 14:49 | CM.DANOTE ---
DCP/continued: Reviewed chart. Spoke with RN/Reva this AM re: patient status. Reva reports that patient doing much better today. She reports that patient alert and oriented x3. Met with patient this afternoon explained PILOT SUPERVISOR role. Patient very pleasant and describes long h/o alcoholism. Patient resides in [place] and describes herself as a closet drinker. Patient lives alone and currently visiting her parents that reside on [place]. Patient still with obvious tremors during visit. Patient reports that she has been to treatment for alcoholism 1 time within the last 18months. Patient remained sober during treatment for approximately 60dys and drank as soon as she was discharged. Patient seen by PT and OT today. Patient needing assistance due to tremors. Patient reports that prior to admit she was completely I. Patient's Mother expected at [facility] tomorrow to do caregiver training at 11:00AM. In the meantime with patient's permission PILOT SUPERVISOR looking into SNF paid for by [facility] and continued medical detox. Spoke with [facility] in [facility] they are reviewing clinical. In addition faxed SNF request to [facility]. P: Pending. JANEL
--- NOTE | 2021-05-20 17:27 | PC.NURSE ---
Pt more steady on her feet today however still needing assistance and using FWW. PT/OT eval completed today. Plan for mother to come tomorrow at 11 a.m. for caregiver training. Pt's mother Bria notifed and in aggreement. Pt is calm today, slightly forgetful. A& Ox2-3 she is able to discuss options with CM this afternoon. VSS, slightly tachy cardic, fair po intake. MG+ replacement today. CIWA remains 7 and below, no PRN ativan administered. She was agreeable to MRI this afternoon and tolerated it well without a need for pre medication. Continuous monitoring.
[2021-05-20] MEDS: POLYVINYL ALCOHOL DROPS 1 DROPS EYE-BOTH (18:08)
[2021-05-21] VITALS (9 sets, daily range): BP systolic 107–129; BP diastolic 69–89; PULSE 79–105; RESP 16–18; TEMP 36.1–36.9; O2SAT 97–100
[2021-05-21 05:47] LABS: Hematocrit 32.4 % (36-46); Hemoglobin 10.6 g/dL (12.0-16.0); Mean Corpuscular HGB Conc 32.6 % (30-36); Mean Corpuscular Hemoglobin 32.9 PG (26-34); Mean Corpuscular Volume 101.1 fL (80-100); Platelet Count 84 X10^3/uL (150-400); Red Blood Cell Count 3.21 X10^6/uL (4.0-5.2); Red Cell Distribution Width 13.6 % (11.6-14.8); White Blood Cell Count 4.1 X10^3/uL (4.5-11.0)
[2021-05-21] MEDS: LEVOTHYROXINE 50 MCG TABLET PO (05:47)
[2021-05-21] MEDS: PANTOPRAZOLE DR 20 MG TABLET PO (05:47)
[2021-05-21 06:16] LABS: BUN Creatinine Ratio 15.6 (6-22); Blood Urea Nitrogen 7 mg/dL (7-17); Calcium 8.9 mg/dL (8.4-10.2); Carbon Dioxide 25 mmol/L (22-32); Chloride 107 mmol/L (98-107); Estimated Glomerular Filt Rate > 60.0 mL/min (>60); Glucose 94 mg/dL (70-100); Magnesium 1.8 mg/dL (1.6-2.3); Sodium 138 mmol/L (137-145)
[2021-05-21 06:37] LABS: HEMOLYSIS 56 (0-50)
[2021-05-21] MEDS: SODIUM CHLORIDE 0.9% 1,000 ML 100 ML IV (07:28)
[2021-05-21] MEDS: ENOXAPARIN 40 MG/0.4 ML SYRINGE SUBCUT (08:11)
[2021-05-21] MEDS: MULTIVITAMIN 1 TABLET 1 TAB PO (08:12)
[2021-05-21] MEDS: FOLIC ACID 1 MG TABLET PO (08:12)
[2021-05-21] MEDS: THIAMINE 500 MG in SODIUM CHLORIDE 0.9% 100 ML 420 ML IV (08:12)
[2021-05-21] MEDS: chlordiazePOXIDE 25 MG CAPSULE PO ×2 (08:12→20:32)
--- NOTE | 2021-05-21 08:42 | CM.MNRNOTE ---
Addendum entered by Rachel Sy R.N. 05/21/21 15:22: Patient talking to mother on the phone, she is confused at times with memory issues. Eating well at meals. Mom was here to visit earlier and has left. Addendum entered by Rachel Sy R.N. 05/21/21 09:07: Patients mom coming in at 1100 am for caretaker training with PT and OT. Will then no more about plan for patient. She is talking to the Doctor now. Original Note: Patients CIWA score a 4. She has some confusion with the date and also has moderate tremors. Patient is a one person assist and walks with a walker to the bathroom. Her seizure pads are in place, tolerated taking her po meds and is getting iv thiamine now. Eating breakfast and will help change her clothes later at her request. Patients mom is coming at 1100 for caretaker training. Brother called to check up on patient.
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
--- NOTE | 2021-05-21 13:30 | P.PN_ITS ---
Subjective Subjective Date Patient Seen: 05/21/21 Time Patient Seen: 08:00 Interval history: She states she is feeling better. Denies withdrawal symptoms, and says she feels steady when walking. However, she is clearly tremulous. She has been unsteady when working with PT. Exam Vital Signs (past 8 hours): - 05/21/21 08:00 05/21/21 08:40 05/21/21 12:00 Temperature 98.5 F 97 F L Pulse Rate 81 105 H Respiratory Rate 16 16 Blood Pressure 129/89 120/89 Pulse Oximetry 100 98 99 Oxygen Delivery Method Room Air Oxygen Flow Rate 0 Narrative Exam Narrative: General:?no acute distress Lungs:?clear bilaterally Cardio:? tacycardic, no murmurs Abdomen:? soft, nontender, nondistended Skin:? Warm dry without rashes Neuro:?bilateral horizontal nystagmus Objective Labs Result Diagrams: 05/21/21 05:34 05/21/21 05:34 Labs: Laboratory Results - last 24 hr 05/21/21 05/21/21 05:34 05:34 WBC 4.1 L RBC 3.21 L Hgb 10.6 L Hct 32.4 L MCV 101.1 H MCH 32.9 MCHC 32.6 RDW 13.6 Plt Count 84 L Sodium 138 Potassium 4.0 Chloride 107 Carbon Dioxide 25 BUN 7 Creatinine 0.45 L Estimated GFR > 60.0 BUN/Creatinine Ratio 15.6 Glucose 94 Calcium 8.9 Magnesium 1.8 PFSH Medical History Acquired hypothyroidism Alcohol abuse Alcohol withdrawal syndrome with complication History of status epilepticus History of tobacco abuse Surgical History (Updated 05/19/21 @ 02:34 by YARA Romero-JOEL) No history of previous surgery Family History (Updated 05/19/21 @ 02:35 by YARA Romero-JOEL) Mother Cancer Father Cancer Social History household members: none Smoking Status: Never smoker alcohol intake: current Assessment & Plan Assessment & Plan narrative: 55W with PMH EtOH dependence/abuse with previous withdrawal seizure brought into ED after being found down and in alochol withdrawal. 1. Alcohol withdrawal with previous withdrawal seizure, Wernicke's enceophalopathy -she has been getting ativan per CIWA protocol, added librium for withdrawal -she has significant ataxia, noted nystagmus, and encephalopathy consistent with Wernicke's encephalopathy ---continue IV thiamine 500mg TID for 2 days, then 250mg daily, for wernicke's -continue folate, multivitamin -patient counseled on stopping drinking and seeking follow-up outpatient mental health and rehabilitative services. -MR brain ordered again, refused yesterday -vinyl hanger consulted 2. Acquired hypothyroidism, chronic, present on admission -continue patient's levothyroxine 3. Probable alcoholic cirrhosis with pancytopenia -pancytopenia noted on labs with wbc 4.2, hgb 10.3, plts 67 -has elevated liver function tests but now improving -abdominal imaging shows concern for nodular/cirrhotic liver 4. Hypomagnesemia -continue magnesium repletion Dispo: remains quite unsteady with ambulating, CM attempting to find placement Time Spent With Patient Critical Care time: I spent a total of [] minutes of critical care time on this patient's care today; this time is exclusive of procedural time. Quality VTE Deep Vein Thrombosis/Pulmonary Embolism Present on Admission: No
--- NOTE | 2021-05-21 14:18 | CM.DANOTE ---
DCP/Note: Reviewed chart. Met with patient and her mother/Bria at bedside today. Patient seen by both PT and OT and SNF recommended. Patient agreeable to short SNF stay for mobility. First SNF choice is [facility]. ACCOUNTANT CERTIFIED PUBLIC placed call to [facility] ph# [phone]. Esther in agreement to review for SNF. Patient aware that if [facility] declines she may have to pay privately for SNF room/board. In addition to the above placed call to [facility] medical detox in [place] ph# [phone]. As of today they have no beds and are unsure they can accommodate. ACCOUNTANT CERTIFIED PUBLIC wanted to explore both options. Patient and Mother prefer d/c to SNF for rehabilitation. Patient aware that she will need intense follow up for alcoholism. Patient agrees. Instructed patient and family to contact [facility] for options while patient visiting here from [place]. Notified patient that we will attempt SNF placement but may not be authorized. [facility] if detox still needed is another option, they are reviewing. P: Pending. JANEL
[2021-05-22 02:00] VITALS: O2SAT 97
--- NOTE | 2021-05-22 03:50 | PC.NURSE ---
Addendum entered by Opal Cochran R.N. 05/22/21 04:05: * does not accept help and insists that we leave her room immediately. When asked to use the walker she says, No that is the stupidest thing to say, I need to walk not play with you device when explained that it is just for safety pt becomes more agitated and tossed the walker aside. pt slowly got back to bed but refused all other care for the rest of the shift. will continue to observe patient and respond to all bed alarms to attempt to keep patient safe from falls Original Note: Pt is setting off bed alarm and not following instructions to call for help to get out of bed,and becomes agitated and aggressive towards hospital staff responding to her bed alarm. does not accept help and insisted thqt Pt has seizure pads on the bed because she has a history of seizures when withdrawing, very angry that staff s trying to make her use a walker
--- NOTE | 2021-05-22 04:31 | PC.NURSE ---
05/22 @ 0400 Patient has refused for me to take VS for midnight and 0400. Reported to Ira Cochran RN
[2021-05-22 05:56] LABS: Hematocrit 36.8 % (36-46); Mean Corpuscular HGB Conc 32.8 % (30-36); Mean Corpuscular Hemoglobin 33.1 PG (26-34); Mean Corpuscular Volume 101.1 fL (80-100); Platelet Count 115 X10^3/uL (150-400); Red Blood Cell Count 3.64 X10^6/uL (4.0-5.2); Red Cell Distribution Width 13.6 % (11.6-14.8); White Blood Cell Count 4.8 X10^3/uL (4.5-11.0)
[2021-05-22 06:00] VITALS: O2SAT 97
[2021-05-22 06:08] LABS: BUN Creatinine Ratio 13.7 (6-22); Blood Urea Nitrogen 7 mg/dL (7-17); Calcium 9.7 mg/dL (8.4-10.2); Carbon Dioxide 24 mmol/L (22-32); Chloride 105 mmol/L (98-107); Estimated Glomerular Filt Rate > 60.0 mL/min (>60); Glucose 101 mg/dL (70-100); HEMOLYSIS < 15 (0-50); Magnesium 1.6 mg/dL (1.6-2.3); Potassium 3.1 mmol/L (3.4-5.1); Sodium 141 mmol/L (137-145)
[2021-05-22] MEDS: PANTOPRAZOLE DR 20 MG TABLET PO (06:39)
[2021-05-22] MEDS: LEVOTHYROXINE 50 MCG TABLET PO (06:39)
[2021-05-22 07:10] VITALS: BP 115/89; PULSE 106; RESP 16; TEMP 36.4; O2SAT 100
[2021-05-22] MEDS: ENOXAPARIN 40 MG/0.4 ML SYRINGE SUBCUT (08:30)
[2021-05-22] MEDS: THIAMINE 250 MG in SODIUM CHLORIDE 0.9% 100 ML 420 ML IV (08:30)
[2021-05-22] MEDS: chlordiazePOXIDE 25 MG CAPSULE PO (08:30)
[2021-05-22] MEDS: POTASSIUM CHLORIDE 20 MEQ TAB 40 MEQ PO (08:30)
[2021-05-22] MEDS: MULTIVITAMIN 1 TABLET 1 TAB PO (08:30)
[2021-05-22] MEDS: FOLIC ACID 1 MG TABLET PO (08:30)
[2021-05-22] MEDS: MAGNESIUM SULFATE 2 GM/50 ML PIGGYBACK IV (10:47)
[2021-05-22 11:00] VITALS: BP 120/85; PULSE 107; RESP 16; TEMP 36.3; O2SAT 100
--- NOTE | 2021-05-22 11:37 | PC.NURSE ---
Assess- Patient is alert and oriented x3 today. Her CIWA score is 5 as patient still has some tremors and she is agitated at times. Per RN report last night, patient was saying mean things to staff and telling them to get out of her room with profanity. For day shift she has been appropriate and pleasant. OT gave patient a shower with assistance and she seems to feel better. Patients mother called to check up on patient and she will be going home back to her parents. New iv started, and patient has a magnesium rider infusing and then iv will be talken out. Resting comfortably now. Patient also has a large purple bruise to her left upper back that is healing.
--- NOTE | 2021-05-22 12:00 | PT.IPTN ---
Current Diagnoses Alcohol abuse, uncomplicated (05/19/21) Alcohol dependence with withdrawal, unspecified (05/19/21) Physical Therapy Treatment Note M2 PT-IP Current Condition Start: 05/19/21 13:47 Freq: NEEDED Status: Active Protocol: Document 05/21/21 11:05 [facility] (Rec: 05/21/21 14:48 [facility] [id number]) Physical Therapy Current Condition Current Condition Evaluation Date 05/20/21 Treatment Diagnosis GLF with head trauma, alcohol withdrawal; impaired mobility and gait Onset Date 05/19/21 M3 PT-IP Subjective Start: 05/19/21 13:47 Freq: NEEDED Status: Active Protocol: Document 05/22/21 11:37 [facility] (Rec: 05/22/21 13:43 [facility] [id number]) Subjective Physical Therapy Visit Type Type Treatment Note Visit Start Time 11:37 Visit Stop Time 12:00 Total Visit Minutes 23 Number of WORKERS' COMPENSATION HEARINGS OFFICER Visits 2 Physical Therapy Visit Comments Patient Comments Pt is willing to participate with PT M4 PT-IP Mobility and Gait Start: 05/19/21 13:47 Freq: NEEDED Status: Active Protocol: Document 05/22/21 11:37 [facility] (Rec: 05/22/21 13:43 [facility] [id number]) PT-Bed Mobility Assessment Sit to Supine Sit to Supine Standby Assistance Scooting Scooting to Edge of Bed Standby Assistance PT-Transfer Assessment Sit to and From Stand Sit to and from Stand Contact Guard Assistance,1 Person Assistance,Use of Upper Extremities Equipment Transfer Assistive Device Gait Belt,Front Wheeled Walker Orthotic/Prosthetic Devices or Brace: No Transfers Transfer Destination Bed Transfer Technique Pt ambulated w/ FWW Transfer Ability Level of Assist Contact Guard Assistance,1 Person Assistance,Use of Upper Extremities Comments Mobility Comments Pt sitting up in bed upon arrival. SBA for scooting EOB, CGA and nahid for sit<>stand w/ FWW. Pt then amulated ~250 ft w/ FWW and CGA w/ cues for FWW management. Pt refused to practice more stairs x3 due to reported feelings of fatigue and weakness. Pt continues to have some shakiness and unsteadiness but no LOB. Pt returned to room and bed sit<> sup SBA. Pt left in room w/ all needs in reach. Gait Assessment Gait Gait Assistance Required: Contact Guard Assist,1 Person Assist Distance (Feet) 250 Able to Maintain Weight Bearing Status Yes During Gait Assistive Devices Assistive Device Gait Belt,Front Wheeled Walker Orthotic/Prosthetic Devices or Brace: No Gait Deviations General Gait Pattern Ataxic,Decreased Feet Clearance,Lateral Trunk Lean, Step-to Gait,Wide Based Gait Factors Limiting Gait Function Factors Limiting Gait Function Abnormal Tonal Influences, Decreased Activity Tolerance, Decreased Strength, Incoordination,Poor Balance, Poor Safety Awareness Comments Gait Comments Pt continues to require CGA w/ FWW. Able to ambulate ~250 ft w/ FWW but requires cues for obstacle avoidance. Stair Climbing Assessment Comments Stair Climbing Comments Pt refused. PT-Balance Assessment Sitting Balance and Reactions Static Sitting Balance Ability Good Dynamic Sitting Balance Ability Fair Standing Balance and Reactions Static Standing Balance Ability Fair Dynamic Standing Balance Ability Fair Device Used FWW M5 PT-IP Objective Assessments Start: 05/19/21 13:47 Freq: NEEDED Status: Active Protocol: Document 05/20/21 11:34 [facility] (Rec: 05/20/21 12:35 [facility] [id number]) Orientation Orientation/Cognition Level of Alertness Confusional State Orientation Name,Month,Situation Safety Awareness Decreased Safety Awareness Memory Description Short Term Impaired Comments Pt performed poorly on coordination testing but stated she felt it was normal. Poor insight into current condition. Gross Range of Motion Upper Extremity ROM Assessment Within Functional Limits Lower Extremity ROM Assessment Within Functional Limits Strength Lower Extremity Strength Assessment Bilaterally Impaired Hip 4-/5 Knee 4+/5 ext; 4/5 flex Ankle 4+/5 DF; unable to raise heels in standing Comments Strength Comments No unilateral deficit on exam Coordination Assessment Gross Coordination Gross Coordination Impaired Assessment Finger to Nose Test Moderate Impairment Pronation/Supination Test Severe Impairment Heel on Ruiz Test Moderate Impairment Coordination Comments Pt missed targets >2 cm on finger to nose testing bilaterally. Unable to coordinate rapid pronation/ supination. Sensation Assessment Comments Sensation Comments Pt denies sensation disturbance on assessment Muscle Tone Muscle Tone WNL No Muscle Tone Location Bilateral Severity of Tone Mild Comments Muscle Tone Comments Tremors BUE and BLE with UE more affected. Other Assessments Other Other Assessments Unable to formally assess visual gatuhier but pt does run into objects on her left side. Pt has resting and gaze- evoked nystagmus. Smooth pursuits were abnormal. Head thrust was positive. M6 PT-IP Treatment Start: 05/19/21 13:47 Freq: NEEDED Status: Active Protocol: Document 05/22/21 11:37 [facility] (Rec: 05/22/21 13:43 [facility] [id number]) Physical Therapy Treatment Education Education Provided Safety Other Treatments Other Treatment Performed Discussed home setting, safety , and FWW. M7 PT-IP Assessment and Plan Start: 05/19/21 13:47 Freq: NEEDED Status: Active Protocol: Document 05/22/21 11:37 [facility] (Rec: 05/22/21 13:43 [facility] [id number]) PT Summary Assessment and Plan Potential Rehabilitation Potential Good Status of Condition at Evaluation Evolving Summary Impairments Strength,Balance,Coordination, Cognition,Bed Mobility, Transfers,Gait Progress Towards Goals Progressing Toward Goals,Slow Progress due to Medical Issues ,Slow Progress due to Activity Tolerance Assessment Summary Pt SBA for bed mobility, CGA and cues for safety during transfers and ambulation. Pt shaky/unsteady when standing and walking but no LOB. She refused further stair training today, but states she has ~ 100 stairs to get to her bedroom. Although she is mobilizing well, she is still not safe to do so alone and due to refusal of stairs, I am unable to know if pt is safe to go home. Goals Bed Mobility Goal Independent Transfer Goal Standby Assistance,Front Wheeled Walker Gait Goal Standby Assistance,Front Wheel Walker Gait Distance 250 Other Goals - up/down 15 steps with unilateral rail SBA Days to Meet Goals 8 Frequency of Treatment Frequency Of Treatment Once a Day Treatment Plan Physical Therapy Treatment Plan Bed Mobility Training,Transfer Training,Gait Training, Therapeutic Exercise,Balance Retraining,Discharge Planning, Neuromuscular Re-ed, Coordination Retraining Other Recommendations and Next Treatment transfers, gait LRAD, balance Focus activities Precautions Other Precautions falls Recommendations To Nursing Amount of Assist Needed 1 Person Assist Discharge Recommendations PT Discharge Recommendations Home with 14/12 Assist Available,Home Health,SNF Rehab,Home vs SNF Equipment Needed for Home Before FWW Discharge Transportation Needs at Discharge Private Vehicle,Wheelchair/ Cabulance
--- NOTE | 2021-05-22 13:17 | OT.IP.TRT ---
Current Diagnoses Alcohol abuse, uncomplicated (05/19/21) Alcohol dependence with withdrawal, unspecified (05/19/21) Occupational Therapy Treatment Note M2 OT-IP Current Condition Start: 05/20/21 12:08 Freq: Status: Active Protocol: Document 05/20/21 12:09 [facility] (Rec: 05/20/21 12:28 [facility] [id number]) Occupational Therapy Current Condition Current Condition Evaluation Date 05/20/21 Treatment Diagnosis ETOH withdrawl with previous withdrawal seizure, decreased mobility Diagnosis Onset Date 05/19/21 M3 OT- IP Subjective and Pain Start: 05/20/21 12:08 Freq: Status: Active Protocol: Document 05/22/21 13:20 [facility] (Rec: 05/22/21 13:27 [facility] [id number]) OT- Subjective Occupational Therapy Visit Type Type Treatment Note Visit Start Time 09:55 Visit Stop Time 13:17 Total Visit Minutes 33 Notes Pt seen for split session as able to issue her a walker at later time. [id number] and 1312 -1317. Occupational Therapy Visit Comments Patient Comments Pt agreed to take a shower. Patient/Caregiver Goals To get better. OT Pain Assessment Pain When Pain Assessed At Rest Pain Present Pain Present Denied Pain M4 OT- IP ADL's Start: 05/20/21 12:08 Freq: Status: Active Protocol: Document 05/22/21 13:20 [facility] (Rec: 05/22/21 13:27 [facility] [id number]) OT ADL-Dressing General Eval Lower Body Dressing Ability Moderate Assistance Areas Needing Assistance Underpants/Brief,Socks Comments OT Dressing Comments MODA to assist to kaye clothing over her feet due to decreased dynamic balance. OT ADL-Bathing Bathing Type Bathing Type Bed Bath General Evaluation Bathing Ability Minimal Assistance Areas Needing Assistance Wash/Dry Back Devices Bathing Equipment Hand Held Shower Sprayer, Shower Chair with Arms,Grab Bars M5 OT- IP IADL's Start: 05/20/21 12:08 Freq: Status: Active Protocol: Document 05/20/21 12:09 [facility] (Rec: 05/20/21 12:28 [facility] [id number]) OT-Instrumental Activities of Daily Living Home Safety Awareness Home Safety Comments Pt a bit confused, having trouble to get the words out, and will benefit from 24/7 assist for all her needs. M6 OT- IP Functional Cognition Start: 05/20/21 12:08 Freq: Status: Active Protocol: Document 05/22/21 13:20 [facility] (Rec: 05/22/21 13:27 [facility] [id number]) Cognitive Factors Limiting Selfcare Function Cognitive Comments Cognitive Assessment Comments Pt still a bit impulsive and needing assist for problem solving. M7 OT- IP Mobility and Balance Start: 05/20/21 12:08 Freq: Status: Active Protocol: Document 05/22/21 13:20 [facility] (Rec: 05/22/21 13:27 [facility] [id number]) OT- Bed Mobility Assessment Rolling Level of Assistance Standby Assistance Supine to Sit Supine to Sit Assist Standby Assistance Sit to Supine Sit to Supine Assist Standby Assistance OT-Transfer Assessment Sit to and From Stand Sit to and from Stand Contact Guard Assistance Transfers Transfer Ability Contact Guard Assistance, Minimal Assistance Technique Transfer Destination Bed,Shower Stall,Toilet Transfer Technique Stand Step Pivot Devices Transfer Assistive Devices Gait Belt,Front Wheeled Walker Comments Mobility Comments JI to stand from lower surfaces and CGA for balance with FWW. OT- Balance Assessment Comments Other Balance Tests/Deviations/Treatment Pt needing heavy assist of : grab bar to academic services coordinator order to do pericare needs. . M9 OT- IP Assessment and Plan Start: 05/20/21 12:08 Freq: Status: Active Protocol: Document 05/22/21 13:20 [facility] (Rec: 05/22/21 13:27 [facility] [id number]) OT Summary Assessment and Plan Potential Rehabilitation Potential Good Analytic Complexity at Evaluation Moderate Summary OT Impairments Balance,Coordination, Functional Cognition, Functional Mobility,Grooming, Dressing,Toileting,Bathing, Toilet Transfers,Shower Transfers,Activity Tolerance Progress Towards Goals Progressing Toward Goals Assessment Summary Pt still needing CGA for balance, assist for LB dressing needs, problem solving and for overall safety awareness. would be best for pt to go to skilled rehab versus home with 24/7 assist and home health. Able to issue pt a FWW. Goals Self-Feeding Goal Independent Grooming Goal Independent Dressing Goal Independent Toileting Goal Independent Bathing Goal Independent Toilet Transfer Goal Independent Shower Transfer Goal Independent Days to Meet Goals 19 Frequency of Treatment Frequency Of Treatment Once a Day Treatment Plan OT Treatment Plan ADL Training,Functional Cognition Training,Functional Mobility,Patient/Family Education,Discharge Planning Discharge Recommendations OT Discharge Recommendations Home with 24/7 Assist Available,Home Health,SNF Rehab,Home vs SNF Home Equipment Needs shower chair, FWW Transportation Needs at Discharge Private Vehicle,Wheelchair/ Cabulance
--- NOTE | 2021-05-22 13:52 | CM.DPNOTE ---
Faxed [facility] referral packet to [facility] per Verónica and spoke to Cy on the phone. He said his team is reviewing the information and they do serve [place]. Cy will call Verónica back on her number in hopes to see pt. next week. Karen Bob CM Asst.
--- NOTE | 2021-05-22 14:33 | CM.DPNOTE ---
DC Note According to Dr Richardson, patient is medically ready for DC today. Met w/patient this morning; reviewed DCP options. Explained that [facility] has denied the SNF auth request and the SNF of choice, [facility], has declined admission. Patient placed call to her parents Bria and Vasquez via her cell phone and placed them on speaker so that this TRAILER TRUCK DRIVER could facilitate a conversation about DCP and available resources Patient/family understand patient will be discharged home today and express concern about caring for patient and concern about patient's recent drinking; family state they are prepared to pick patient up and transport patient home w/them and appreciate any available resources. Discussed home health care; and this TRAILER TRUCK DRIVER explained that since patient has an [place] and does not have an established PCP, [facility] may be able to offer assistance through their [facility] ([facility]care At Home program) but this TRAILER TRUCK DRIVER would need to investigate. MARTI Jones, kindly faxed this referral to [facility] and now awaiting call back Patient told this TRAILER TRUCK DRIVER that she intended to remain sober but denied a need for outpatient RAS/IOP resources ARCADIO Ramos updated throughout the morning Plan: DC home w/family via pov, abstinence from alcohol strongly encouraged, outpatient resources refused at this time RUSSELL Barraza
--- NOTE | 2021-05-22 18:53 | PM.DS.1 ---
History of Present Illness History of Present Illness Chief complaint: orb Narrative: Per Marquita Brown: Carly Carney? is a 55? year old female? with a reported medical history chronic alcohol abuse and hypothyroidism who was seen at [facility] ED, patient was brought in by her family complaining of uncontrollable shakes a inability to stand after stopping drinking on , it was reported that her family found her down at home on the floor unconscious after hitting her head on the counter for an undetermined amount of time.? It was also reported by EMT's that they patient had a seizure in [facility] ED was given IV Ativan, Thiamine, the pt also pulled out her IV in the ambulance.? Apparently April of 2020 patient was seen at [facility] ED for status epilepticus secondary to alcohol withdrawal.? Report/request for transfer was called to Dr. Richardson who accepted transfer to our facility.? No physician notes provided,? only imaging and few laboratory results.? Several attempts have been made to obtain physician notes and laboratory results to no avail.? The patient is a poor historian and confused as she has had at least 6 mg of Ativan per EMS.? She is alert, though she fell asleep during questioning. She states that she has been drinking at least 24-48 oz of vodka daily for approximately 35 years she has? attempted sobriety several times, and rehab approximately 2-3 years ago. She reports no history of seizures with withdrawals, and was unable to recall being found down or having a seizure earlier.? Patient states her last drink was on the 16 of May.? Patient states that she smoked for 20 years and quit at the age of 37, she takes no recreational substances, she lives alone in [facility] she is up here visiting family for the holidays . Based on the records from [facility] temp 98.1?, BP 153/100, HR 112, R 22, O2 saturation 98% on room air.? Upon admit patient had is slightly febrile temp 99.5?, BP 136/86, HR 106, RR 18, O2 saturation 99% on room air.? Patient is alert, though appears confused and falls asleep during intake interview, poor historian, but in no distress at this time.? [facility] provided no cbc results, anion gap 15, creatinine 0.40, AST 168, ALT 58, bili 1.8, magnesium of 1.3 and was given 50 mg of magnesium, PT 14.8, INR 1.1, ETOH was negative, troponin WNL, tox screen negative, urinalysis showed positive bilirubin, uro bili of 4.0, ketones large, trace leukocytes, and protein + 30.? Patient's abdomen pelvis CT demonstrated no acute abnormalities, diffuse hepatic steatosis, mild nodularity of the liver surface which is suspicious for early cirrhosis, and small hiatal hernia.? Patient's head CT demonstrated no acute intracranial processes.? Patient has had not been tested for COVID prior to transfer.? Patient's EKG is documented as sinus tachycardia at a rate of 109, low-voltage extremity and precordial leads, consistent with EKG from 05/21/2020. Patient admitted for observation alcohol withdrawal syndrome with complication, seizure, head trauma secondary to syncope, hypomagnesia in the setting of history of status epilepticus related to alcohol withdrawal. Discharge Providers Provider Date of admission: 05/19/21 00:32 Discharge Date: 05/22/21 Consults: 05/19/21 00:53 Consult to Dietitian, Adult Routine Comment: Reason For Exam: ETOH abuse 05/19/21 04:26 Consult to Dietitian, Adult Routine Comment: Reason For Exam: alcohol withdrawal 05/19/21 12:24 Consult to Physical Therapy Evaluate & Treat Comment: Physician Instructions: Evaluate and Treat 05/19/21 12:25 Consult to Occupational Therapy Evaluate & Treat Comment: Physician Instructions: Evaluate and treat 05/22/21 11:13 Consult to Physical Therapy Evaluate & Treat Comment: Physician Instructions: FWW For Home Use Discharge provider: Alfred Richardson MD Summary Hospital Course Discharge Diagnosis: 1. Alcohol abuse, alcohol withdrawal, wernicke's encephalopathy 2. Alcoholic cirrhosis with pancytopenia 3. Hypomagnesemia 4. Hypothyroidism Hospital Course: Ms. Carney came in to the hospital with alcohol withdrawal after being found down. She was placed on CIWA protocol and her withdrawal was controlled. She had significant encephalopathy, horizontal nystagmus, and ataxia. She was quite unsteady on her feet. This was consistent with Wernicke's encephalopathy and she was given high dose IV thiamine repletion at 500mg IV TID for two days before decreasing to 250mg daily. This did help her encephalopathy and ataxia, but she still remained unsteady. SNF and inpatient alcohol rehab were attempted, but declined by her insurance. She had a nodular liver with mildly elevated LFTs, that improved, and pancytopenia consistent with new diagnosis of alcoholic cirrhosis. She is unfortunately already suffering permanent effects from alcohol and she and her family were counselled about the risk of significant decline and with any continued drinking. She was not very interested in outpatient cessation programs. Social work was involved to arrange as safe a discharge plan as possible, she was discharged to stay with her parents, to get rehab with home health, and given drinking cessation information. Discharge time 35 minutes Exam Vital Signs (past 8 hours): Oxygen Delivery Method Room Air Oxygen Flow Rate 0 Narrative Exam Narrative: General:?no acute distress Lungs:?clear bilaterally Cardio:? tacycardic, no murmurs Abdomen:? soft, nontender, nondistended Skin:? Warm dry without rashes Neuro:?bilateral horizontal nystagmus Objective Labs Result Diagrams: 05/22/21 05:46 05/22/21 05:46 [facility] Medical History Acquired hypothyroidism Alcohol abuse Alcohol withdrawal syndrome with complication History of status epilepticus History of tobacco abuse Surgical History (Updated 05/19/21 @ 02:34 [facility] No history of previous surgery Family History (Updated 05/19/21 @ 02:35 by CLAUDETTE Romero) Mother Cancer Father Cancer Social History household members: none Smoking Status: Never smoker alcohol intake: current Discharge Plan Discharge Plan Patient Disposition: Home Provider Discharge Comment: Ms. Carney came in to the hospital with alcohol withdrawal. She was also very unsteady, and at times confused. She has likely cirrhosis from alcohol use. She likely has some chronic injury from alcohol causing her to be unsteady. She should stop alcohol completely. She is referred to physical therapy. Discharge orders & Medications Prescriptions: New levothyroxine [Synthroid] 50 mcg Tablet 50 mcg PO DAILY@0600 Qty: 30 0RF folic acid 1 mg Tablet 1 mg PO DAILY Qty: 30 0RF multivitamin with folic acid [Tab-A-Georgina] 400 mcg Tablet 1 tab PO DAILY Qty: 30 0RF thiamine HCl (vitamin B1) 250 mg tablet 250 mg PO DAILY Qty: 30 0RF Diet/Activity/Treatments Diet: Diet as Tolerated Visit Report/Discharge Packet Instructions: Alcohol and Stress: There are Safer Ways to [place], Getting to the Heart of a Healthy Diet: Alcohol, Alcohol Use Disorder, DI for Alcohol Use Disorder, How to Prevent Falls Quality VTE Deep Vein Thrombosis/Pulmonary Embolism Present on Admission: No
== END 2021-05-22 14:10 | disposition home or self-care (01) | DRG 897 ==
PROVIDERS: Internal Medicine; Admitting Provider Nurse Practitioner Family; Referring Provider Nurse Practitioner Family; Visit Provider Nurse Practitioner Family
DX: F10.139 Alcohol abuse with withdrawal, unspecified (principal); D61.818 Other pancytopenia; E51.2 Wernicke's encephalopathy; R56.9 Unspecified convulsions; E83.42 Hypomagnesemia; K70.30 Alcoholic cirrhosis of liver without ascites; E03.9 Hypothyroidism, unspecified; Z87.891 Personal history of nicotine dependence; Z20.822 Contact with and (suspected) exposure to COVID-19; R00.0 Tachycardia, unspecified; R55 Syncope and collapse; S09.90XA Unspecified injury of head, initial encounter; W18.30XA Fall on same level, unspecified, initial encounter
CPT/HCPCS: 36415; 70553; 80048; 80053; 81001; 82140; 82550; 83036; 83735; 83880; 84100; 84439; 84443; 85025; 85027; 85610; 85730; 87635; 94760; 97116; 97162; 97166; 97530; 97535; C9803; A9270; G0379; J1650; J2060; J2405; J3475